=== PATIENT | female | born 1995 | race Hispanic/Latino ===

== ENCOUNTER 2024-09-18 07:43 | Day surgery (SDC) | payer BC ==
[2024-09-12 12:51] VITALS: BP 131/79; PULSE 69; RESP 18; TEMP 99.1
[2024-09-12 13:23] LABS: BASOPHILS # (AUTO) 0.11 K/uL (0.00-0.20); BASOPHILS % (AUTO) 1.1 % (0.0-5.0); EOSINOPHILS # (AUTO) 0.41 K/uL (0.00-0.70); EOSINOPHILS % (AUTO) 4.2 % (0.0-8.0); HEMATOCRIT 43.3 % (36-48); IMMATURE GRANULOCYTE ABSOLUTE 0.02 K/uL (0-1); LYMPHOCYTES # (AUTO) 2.1 K/uL (1.0-4.8); LYMPHOCYTES % (AUTO) 21.7 % (21.0-51.0); MEAN CORPUSCULAR HEMOGLOBIN 31.1 pg (27.0-33.0); MEAN CORPUSCULAR VOLUME 94.1 fL (79-99); MONOCYTES # (AUTO) 0.6 K/uL (0.1-1.0); MONOCYTES % (AUTO) 6.3 % (3.0-13.0); NEUTROPHILS # (AUTO) 6.4 K/uL (1.8-7.7); NEUTROPHILS % (AUTO) 66.5 % (40.0-77.0); PLATELET COUNT (AUTO) 363 K/uL (130-400); RED CELL DISTRIBUTION WIDTH 13.8 % (11.0-15.5); WHITE BLOOD COUNT (AUTO) 9.7 K/uL (4.8-10.8)
[2024-09-12 13:34] LABS: PROTHROMBIN TIME 10.8 SEC (9.6-11.6)
[2024-09-12 13:36] LABS: PARTIAL THROMBOPLASTIN TIME 26.1 SEC (26.3-35.5)
[2024-09-18] VITALS (13 sets, daily range): BP systolic 113–139; BP diastolic 67–86; PULSE 54–78; RESP 12–19; TEMP 97–97.4
[~2024-09-18] VITALS: Ht 180.3 cm; Wt 79.2 kg
[~2024-09-18 07:43] MED LIST: SEMA2.4P SQ
[2024-09-18 12:03] LABS: CREATININE 0.7 mg/dL (0.5-1.0); POTASSIUM 3.7 mmol/L (3.5-5.1)
[2024-09-18] MEDS: LACTATED RINGERS 1000ML 1,000 ML IV ONE (12:31)
[2024-09-18] MEDS: ceFAZolin SODIUM 2 GM VIAL ONE (12:31)
[2024-09-18] MEDS ORDERED: BUPIvacaine/PF 0.25% 30ML VIAL IJ ONE (14:25)
[2024-09-18] MEDS ORDERED: BUPIvacaine/PF 0.25% 10ML VIAL IJ ONE (14:25)
[2024-09-18] MEDS ORDERED: acetaMINOPHEN 100 ML ONE (15:08)
[2024-09-18] MEDS ORDERED: FENTanyl CITRate PF 50 MCG/1 ML 2ML VIAL ONE ×2 (15:15→17:09)
[2024-09-18] MEDS ORDERED: MIDAZOLAM HCL 1 MG/ML 2ML VIAL ONE (15:15)
[2024-09-18] MEDS ORDERED: proPOFol 10 MG/ML 20ML VIAL IV ONE (15:28)
[2024-09-18] MEDS ORDERED: rocuRONium bROMide 10MG/1ML 5ML VL ONE (15:28)
[2024-09-18] MEDS ORDERED: metoCLOPRAmide 10 MG/2 ML VIAL ONE (15:28)
[2024-09-18] MEDS ORDERED: dexaMETHasone SOD PHOSPHATE 10MG/ML 1ML VIAL ONE (16:04)
[2024-09-18] MEDS ORDERED: ROPivacaine 0.5% 5MG/ML 30ML ONE (16:04)
[2024-09-18] MEDS: ceFAZolin SODIUM 2 GM VIAL IVPB ONE (16:20)
--- NOTE | 2024-09-18 17:29 | OP ---
Operative Note: DATE OF PROCEDURE: 09/18/24 SURGEON: SAMEER KANG MD [employer] APPRENTICE: [] ANESTHESIA: [] General ANESTHESIOLOGIST/OCCUPATIONAL MEDICINE PHYSICIAN: [] PREOPERATIVE DIAGNOSIS: [] Chronic cholecystitis and suprapubic stitch granuloma POSTOPERATIVE DIAGNOSIS: [] The same SYNOPSIS: [] PROCEDURE: [] Laparoscopic cholecystectomy and removal of suprapubic stitch granuloma ESTIMATED BLOOD LOSS: [] Minimal INDICATIONS: [] DESCRIPTION OF PROCEDURE: [] With the patient prepped in the usual fashion a supraumbilical incision was additionally directed to meet with placement of the trocar and abdomen insufflated. Three 5 mm trochars were placed in the right upper quadrant under direct vision. The gallbladder was exposed adhesions were taken down and I dissected triangle of [place]. The cystic duct was clearly identified was triple clipped and divided and the cystic artery was double clipped and divided. I took the gallbladder from the liver using cautery dissection and after removed from the liver bed I placed an in a bag. I cauterized the liver bed and after adequate hemostasis and irrigation I removed all the trochars under direct vision and the gallbladder was removed from the supraumbilical incision. After removing the gallbladder I placed interrupted [id number] Vicryl's and the fascia. Attention was given to the previously marked area in the suprapubic area. An elliptical incision was done and using cautery and blunt dissection I was able to get an area of about 10 cm long in the 5 cm deep to take all the subcutaneous tissue in the skin. An induration was felt that the button of the incision. I closed this area with 2-0 Vicryl after copious irrigation hemostasis. All incisions were closed with 4-0 Monocryl and Steri-Strips. Patient was stable at the end of the procedure. A tap block was done by anesthesia SAMEER KANG MD Sep 18, 2024 17:29
[2024-09-18] MEDS ORDERED: GLYCOPYRROLATE 0.2 MG/ML 5 ML VIAL ONE (17:39)
[2024-09-18] MEDS ORDERED: NEOSTIGMINE METHYLSULFATE 1MG/ML IV ONE (17:40)
[2024-09-18] MEDS: MEPERIDINE-PF 25 MG/ML SYG ONE (18:06)
== END 2024-09-18 18:55 | disposition home or self-care (01) ==
LOC: DAH 07:43
PROVIDERS: ATTEND Surgery
DX: K80.10 Calculus of gallbladder with chronic cholecystitis without obstruction (principal); L92.3 Foreign body granuloma of the skin and subcutaneous tissue; F41.9 Anxiety disorder, unspecified; F90.9 Attention-deficit hyperactivity disorder, unspecified type; R23.8 Other skin changes; L98.8 Other specified disorders of the skin and subcutaneous tissue; Z79.01 Long term (current) use of anticoagulants; Z91.040 Latex allergy status; Z79.899 Other long term (current) drug therapy
CPT/HCPCS: 84703; 85025; 85610; 85730; 36415 ×2; 47562; 11406; 64488; 80048; 81025; 88304; 88305; A6260; A4663; J7030; J7120; J3010 ×2; J1100; J3490 ×2; J2250; J2704; J2710; J2175; J2765; J2795; J0690 ×2; C1769 ×3; A4649; A4215; A4222; A4221; A4450; A4223 ×2; A4600; J0665